=== PATIENT | female | born 1995 | race Caucasian/White ===

== ENCOUNTER 2016-08-18 12:14 | Emergency (ER) | payer BC | END 2016-08-18 13:05 | disposition home or self-care (01) | LOC: ER 12:14 | PROC: 0XQ4XZZ Repair Right Axilla, External Approach (ICD-10-PCS; principal; 2016-08-18) | PROC: 0HQGXZZ Repair Left Hand Skin, External Approach (ICD-10-PCS; 2016-08-18) | PROC: 0HQFXZZ Repair Right Hand Skin, External Approach (ICD-10-PCS; 2016-08-18) | DX: S41.011A Laceration without foreign body of right shoulder, initial encounter (principal); S61.412A Laceration without foreign body of left hand, initial encounter; S61.411A Laceration without foreign body of right hand, initial encounter; Z88.2 Allergy status to sulfonamides; W54.0XXA Bitten by dog, initial encounter | CPT/HCPCS: 90471; 90714; 96365; 96375; 99283; J0295; J2405 ==